=== PATIENT | male | born 1985 | race Caucasian/White ===

== ENCOUNTER 2021-09-16 19:12 | Emergency (ER) | payer SELFPAY ==
[2021-09-16 19:30] VITALS: BP 159/90; PULSE 81; RESP 19; TEMP 37.2; O2SAT 98; BMI 36.6
[2021-09-16 19:53] VITALS: BP 159/90; PULSE 81; RESP 19; TEMP 37.2; O2SAT 98
--- NOTE | 2021-09-16 19:53 | HMH.EDUTC ---
[facility] [place] Disposition Clinical Impression: Puncture wound Disposition: Home, Self-Care Condition on Discharge: Good Instructions: DI for Puncture Wound, Amoxicillin and Clavulanic Acid Additional Instructions: soak foot in warm water and epson salt to clean the wound Watch for signs of infection such as redness, swelling, streaks, and drainage if seen follow up immediately Take oral antibiotics as prescribed Return if needed Follow up with your Family Doctor if no improvement or any worsening of symptoms Prescriptions: Amoxicillin/Potassium Clav [Amox-Clav 875-125 mg Tablet] 1 tab PO BID #14 tab Transmission Status: Pending to [id number] Referrals: Zenia Harper APRN [Primary Care Provider] - As needed Time of Disposition: 20:00 Medical Decision Making - Kavon Inquiry Pt receiving controlled substance: No Kavon was queried for this patient: No Vital Signs: 09/16/21 19:30 Temperature 98.9 F Temperature Source Oral Pulse Rate [Right Brachial] 81 Respiratory Rate 19 Blood Pressure [Right Arm] 159/90 H Blood Pressure Mean [Right Arm] 113 Blood Pressure Source [Right Arm] Automatic Cuff Blood Pressure Position [Right Arm] Sitting 02 Sat by Pulse Oximetry 98 Oxygen Delivery Method Room Air Orders (Tests/Meds): ED MEDICATIONS Discontinued Medications Generic Name Dose Route Start Last Admin Trade Name Freq PRN Reason Stop Dose Admin Tetanus/Reduced Diphtheria/Acell Pertussis 0.5 ml 09/16/21 19:43 Tet/Diphth/Pert-Adult 0.5ml Syringe IM 09/16/21 19:44 .ONCE ONE Medical Decision Narrative: Discussed xray and patient declined mild swelling noted [facility] [place] HPI - General Stated complaint: ao 09/16@10 Step on nail r foot Time Seen by Provider: 09/16/21 19:53 Mode of Arrival: Ambulatory Source of Information: Patient Limitations: No Limitations Description of Symptoms (Recalled from Triage Doc. by RN): PATIENT STEPPED ON NAIL WITH RIGHT FOOT THIS MORNING. NEEDING A TETANUS SHOT HEENT Symptoms (Recalled from RN notes): No Resp Symptoms (Recalled from RN notes): No Skin Symptoms (Recalled from RN notes): Yes MS Symptoms (Recalled from RN notes): No Functional Status (Recalled from RN notes): WNL - History of Present Illness Provider Complaint: Patient states that he stepped on a nail this morning around 10am that was on a board outside and went through the bottom of his shoe into his right foot States that the nail was teodora and he pulled it out States that he soaked the foot in warm water and epson salt but was unsure of his last tetanus so he came in to get one - Related Data Previous Rx's Medication Instructions Recorded Amoxicillin/Potassium Clav 1 tab PO BID #14 tab 09/16/21 [Amox-Clav 875-125 mg Tablet] Allergies Allergy/AdvReac Type Severity Reaction Status Date / Time No Known Allergies Allergy Verified 09/16/21 19:43 - Worker's Comp Is this a Worker's Comp case?: No [facility] History - Hepatitis A Screen Attestation statement:: This patient has been screened for Hepatitis A risk factors. I have reviewed the patient's past medical history: Yes - Social History Alcohol Intake: never Occupational Status: other ROS Obtained: Yes All systems reviewed & no additional complaints, Yes Systems reviewed as appropriate & no additional complaints - Constitutional Constitutional: Reports system reviewed and no additional complaints, except as docu, Denies body ache, Denies chills, Denies fever(s) - ENT Ears, Nose, Mouth, and Throat: Reports system reviewed and no additional complaints, except as docu - Cardiovascular Cardiovascular: Reports system reviewed and no additional complaints, except as docu - Respiratory Respiratory: Reports system reviewed and no additional complaints, except as docu - Gastrointestinal Gastrointestingal: Reports: system reviewed and no additional complaints, except as docu - Integumentary/Breasts Skin/Linda
== END 2021-09-16 20:05 | disposition home or self-care (01) ==
PROVIDERS: Emergency Provider Nurse Practitioner; PCP Nurse Practitioner Family
DX: S91.331A Puncture wound without foreign body, right foot, initial encounter (principal); W45.0XXA Nail entering through skin, initial encounter
CPT/HCPCS: 90471; 90715; 99213; G0463

== ENCOUNTER 2024-02-27 06:16 | Outpatient (CLI) | payer SELFPAY ==
--- NOTE | 2024-02-27 | CA_ITS ---
APPROVED REPORT Exam: Exercise Treadmill Technologist: Leticia Domingo Ht: 5 ft 10 in Wt: 260 lbs BSA: 2.33 m2 HR: 61 bpm BP: 153/98 mmHg Stress Test Details HR Resting HR: 61 bpm Max Heart Rate (APMHR): 180.002306 bpm Max HR Achieved: 169 bpm Target HR (85% APMHR): 153.252818 bpm % of APMHR: 93.89 Recovery HR: 85 bpm BP Resting BP: 153.0/98.0 mmHg Max BP: 196.0/105.0 mmHg Recovery BP: 159.0/95.0 mmHg ECG Resting ECG: NSR, right axis deviation, inferior T wave abns Clinical Highest Stage Achieved: IV Stress ECG Conclusion Exercised 9:34 on Amandeep Protocol Max HR: 170 % of PM: 94% Max BP: 210/127 METs: 11.2 Test stopped due to: SOA, Fatigue Symptoms: No CP. Arrhythmias/Ectopy: Occ PVC. most notably in recovery. ST-T Changes: 1-1.5 mm of horizontal & slightly upsloping ST depression laterally. Apprx 1.0-1.5 mm horizontal, upsloping & downsloping ST depression inferiorly. Conclusion: EKG changes suggestive of ischemia without CP. Myoview images reported separately. Electronically signed by : Tiana Bowen MD 03/02/2024 11:37:40
--- NOTE | 2024-02-27 06:46 | NM_ITS ---
APPROVED REPORT Exam: Nuclear Stress Test Indication: soa..palpitations Patient Location: Outpatient Stress Tech: Leticia Mitchell [place] Tech:Marita Potts BEATRICE RT(R)(N) Ht: 5 ft 10 in Wt: 256 lbs HR: 60 bpm BP: 153/98 mmHg BSA: 2.32 m2 TID: 1.12 BMI: 36.7 History: soa..palpitations Procedure: Patient exercised on Amandeep protocol 9:34 minutes and sec, resting heart rate 60 bpm, resting blood pressure 153/98 mmHg, with exercise maximum heart rate achived was 170 bpm which is 94 % of the maximum predicted heart rate and blood pressure was 210/127 mmHg. Test was stopped due to fatigue. Patient denied any complaint of chest pain. Patient has Average exercise capacity, achieved 11.2 METs of workload on treadmill, the blood pressure response to exercise was Exaggerated. Cardiac Stress and Resting SPECT Images: Cardiac Stress and Resting SPECT images were obtained using technetium 99m Myoview 32.3 mCi stress and 10.03 mCi at rest. Resting and stress imaging in supine and prone positions demonstrate a medium sized, moderate, reversible perfusion defect in the basal to mid inferior LV wall. Gated imaging demonstrates mild reduction in global LV systolic function. There is moderate hypokinesis of the basal inferior LV wall. LVEF is calculated at 45%. Conclusion: Medium sized, moderate, reversible perfusion defect in the basal to mid inferior LV wall. Findings are suggestive of reversible ischemia. Gated imaging demonstrates mild reduction in global LV systolic function. There is moderate hypokinesis of the basal inferior LV wall. LVEF is calculated at 45%. Of note, the patient had an exaggerated hypertensive BP response to exercise. BP control is recommended. Electronically signed by : Tiana Bowen MD 03/02/2024 11:39:59
[2024-02-27] MEDS: SODIUM CHLORIDE 0.9% 10ML SYR (RAD ONLY) 10 ML IV ×2 (09:36)
[2024-02-27] MEDS: ISOTOPE MYOVIEW (PER STUDY) 1 DOSE IV (09:36)
== END 2024-02-27 23:59 | disposition home or self-care (01) ==
PROVIDERS: PCP Nurse Practitioner; Visit Provider Nurse Practitioner
DX: R00.2 Palpitations (principal); R07.89 Other chest pain; R94.31 Abnormal electrocardiogram [ECG] [EKG]
CPT/HCPCS: 78452; 93017; 93018; A9502